=== PATIENT | male | born 1965 | race Two or more races ===

== ENCOUNTER 2017-09-18 16:40 | Emergency (ER) | payer MEDICARE, MEDICAID ==
[~2017-09-18] VITALS: Ht 182.9 cm; Wt 125.0 kg
[2017-09-18 18:00] LABS: HEMATOCRIT. 35.7 % (42.0-52.0); HEMOGLOBIN. 11.9 g/dL (14.0-18.0); MEAN CORPUSCULAR HEMOGLOBIN 28.8 pg (28.0-32.0); MEAN CORPUSCULAR VOLUME 86.7 fL (80.0-94.0); MEAN PLATELET VOLUME 7.1 fl (7.4-10.4); PLATELET 296 x1000/uL (130-400); RED BLOOD CELL COUNT 4.12 mill/uL (4.7-6.1); RED CELL DISTRIBUTION WIDTH 15.6 % (11.6-14.6)
[2017-09-18 18:08] LABS: INR 1.1; PROTHROMBIN TIME 11.6 sec (9.4-11.6)
[2017-09-18 18:12] LABS: CHLORIDE 101 mEq/L (98-107); ETHANOL BLOOD < 10 mg/dL
[2017-09-18 19:34] LABS: ATYPICAL LYMPHOCYTES 1; PLATELET ESTIMATE NORMAL
[2017-09-18 21:45] VITALS: BP 187/87
== END 2017-09-18 21:45 | disposition left against medical advice (07) ==
LOC: ER 17:22 → EDBEDREQTM 19:22 → EDBEDREQ 19:22 → ER 21:45 → ENRESERV 23:41 → CANRESERV 23:41 → CANBEDREQ 09-19 07:00
DX: R55 Syncope and collapse (principal); E11.22 Type 2 diabetes mellitus with diabetic chronic kidney disease; I12.0 Hypertensive chronic kidney disease with stage 5 chronic kidney disease or end stage renal disease; N18.6 End stage renal disease; Z99.2 Dependence on renal dialysis; Z86.73 Personal history of transient ischemic attack (TIA), and cerebral infarction without residual deficits
CPT/HCPCS: 36415; 70450; 71045; 80053; 83605; 85025; 85610; 93005; 99285; G0482

== ENCOUNTER 2017-11-14 00:17 | Emergency (ER) | payer MEDICARE, MEDICAID ==
[~2017-11-14] VITALS: Ht 188 cm; Wt 114.0 kg
[2017-11-14 02:50] LABS: BASOPHILS % 1.4 % (0.0-2.0); HEMATOCRIT. 32.9 % (42.0-52.0); HEMOGLOBIN. 10.9 g/dL (14.0-18.0); LYMPHOCYTES % 14.1 % (20.0-50.0); MEAN CORPUSCULAR HEMOGLOBIN 27.7 pg (28.0-32.0); MEAN CORPUSCULAR VOLUME 83.8 fL (80.0-94.0); MEAN PLATELET VOLUME 7.6 fl (7.4-10.4); NEUTROPHILS % 70.5 % (40.0-76.0); PLATELET 223 x1000/uL (130-400); RED BLOOD CELL COUNT 3.93 mill/uL (4.7-6.1); RED CELL DISTRIBUTION WIDTH 15.5 % (11.6-14.6)
[2017-11-14 04:15] VITALS: BP 186/90
== END 2017-11-14 05:10 | disposition home or self-care (01) ==
LOC: ER 00:17
DX: R53.1 Weakness (principal); E87.70 Fluid overload, unspecified; R60.0 Localized edema; J90 Pleural effusion, not elsewhere classified; E11.22 Type 2 diabetes mellitus with diabetic chronic kidney disease; I12.0 Hypertensive chronic kidney disease with stage 5 chronic kidney disease or end stage renal disease; N18.6 End stage renal disease; Z99.2 Dependence on renal dialysis; Z88.8 Allergy status to other drugs, medicaments and biological substances
CPT/HCPCS: 36415; 71045; 80048; 84484; 85025; 93005; 99285